=== PATIENT | female | born 1960 | race Two or more races ===

== ENCOUNTER 2017-01-05 10:24 | Emergency (ER) | payer MEDICAID ==
[~2017-01-05] VITALS: Ht 165.1 cm; Wt 83.9 kg
[2017-01-05 11:52] VITALS: BP 134/71
== END 2017-01-05 12:01 | disposition home or self-care (01) ==
LOC: ER 10:24
DX: F31.9 Bipolar disorder, unspecified (principal); Z88.0 Allergy status to penicillin; Z76.0 Encounter for issue of repeat prescription
CPT/HCPCS: 82962; 93005

== ENCOUNTER 2020-01-10 11:28 | Inpatient (IN) | payer MEDICAID ==
[~2020-01-10] VITALS: Ht 165.1 cm; Wt 65.1 kg
[2020-01-10] MEDS ORDERED: SODIUM CHLORIDE 0.9% 1,000 ML IVB ONE (11:48)
[2020-01-10] MEDS ORDERED: PANTOPRAZOLE 40 MG/10 ML VIAL INJ IV ONE (12:00)
[2020-01-10 13:32] LABS: Basophils # (auto) 0.1 10 ^3/uL (0-0.2); Basophils % (auto) 1.1 % (0.0-2.0); Eosinophils # (auto) 0.7 10 ^3/uL (0-0.8); Eosinophils % (auto) 11.8 % (0.0-7.0); Hematocrit 38.1 % (36.0-46.0); Hemoglobin 12.4 g/dL (12.2-16.2); Lymphocytes # (auto) 1.7 10 ^3/uL (0.4-5.4); Lymphocytes % (auto) 30.6 % (10.0-50.0); Mean Corpuscular Hemoglobin 30.3 pg (28.0-32.0); Mean Corpuscular Hgb Conc. 32.6 g/dL (32.0-36.0); Mean Corpuscular Volume 93.1 fL (80.0-100.0); Monocytes # (auto) 0.4 10 ^3/uL (0-1.3); Monocytes % (auto) 7.5 % (0.0-12.0); Neutrophils # (auto) 2.7 10 ^3/uL (1.6-8.6); Nucleated Red Blood Cells % 0.1 %; Platelet Count (auto) 161 10^3/uL (140-450); Red Blood Cells 4.09 10^6/uL (4.0-5.20); Red Cell Distribution Width 13.4 % (11.8-14.3); White Blood Cell 5.6 10^3/uL (4.4-10.8)
[2020-01-10 13:53] LABS: INR 0.97 (0.9-1.15); Partial Thromboplastin Time 26.5 sec (23.0-31.2)
[2020-01-10 14:08] LABS: Urine Bacteria NONE SEEN /hpf (None Seen); Urine Blood Negative /uL (Negative); Urine Specific Gravity 1.007 (1.001-1.035); Urine WBC 3 /hpf (0 - 5)
[2020-01-10 14:56] LABS: Albumin 3.7 g/dL (3.4-5.0); Calcium 8.2 mg/dL (8.5-10.1); Potassium 3.6 mmol/L (3.5-5.1)
[2020-01-10 14:59] LABS: BUN/Creatinine Ratio 16.9; Bilirubin, Total 0.3 mg/dL (0.2-1.0)
[2020-01-10] MEDS ORDERED: predniSONE 20 MG TAB PO SCH (16:45)
[2020-01-10] MEDS ORDERED: GOLYTELY 4L KIT PO ONE (16:45)
[2020-01-10] MEDS ORDERED: cefTRIAXone 1GM/50ML D5W 50 ML IV ONE (17:00)
[2020-01-10] MEDS ORDERED: HYDROCORTISONE 2.5% TOPICAL CREAM 30GM TUBE TOP SCH (18:00)
[2020-01-10] MEDS ORDERED: MORPHINE SULF INJ 2 MG/ML SYRINGE 1ML IV PRN (18:00)
[2020-01-10] MEDS ORDERED: NITROGLYCERIN 0.4 MG SL TAB SL PRN (18:00)
[2020-01-10] MEDS ORDERED: QUET100T46 PO (18:01)
[2020-01-10] MEDS ORDERED: BUPR100T14 PO (18:01)
[2020-01-10] MEDS ORDERED: LAMO200T34 PO (18:01)
[2020-01-10] MEDS ORDERED: BUSP15TA60 PO (18:01)
[2020-01-10] MEDS ORDERED: SULF500T8 PO (18:01)
[2020-01-10] MEDS: metroNIDAZOLE 500MG/100ML 100 ML IV SCH (19:00)
--- NOTE | 2020-01-10 20:10 | NUR ---
Telemetry admit from ER SEJALFILOMENA admitted to Telemetry unit after SBAR received. Patient oriented to Carolina wong RN, unit, room, bed, and unit policies regarding patient care and visiting hours. Patient now on continuous telemetry monitoring, tele box # 25 and telemetry reading on arrival to unit is SR 75. Patient placed on bedside oxygen, weighed by bed scale and encouraged to call if they need something. All questions and concerns addressed, patient verbalized understanding. Note: Came per magali awake alert oriented x 4, [place] speaking, placed in the bed comfortably, vital signs checked.
[2020-01-10 20:30] VITALS: BP 124/66
[2020-01-10] MEDS: busPIRone HCL 10 MG TAB PO SCH (21:09)
[2020-01-10] MEDS: sulfaSALAzine 500 MG TAB PO SCH (21:25)
--- NOTE | 2020-01-10 21:30 | NUR ---
Consented for colonoscopy.
[2020-01-10] MEDS ORDERED: QUEtiapine FUMARATE 100 MG TAB PO SCH (22:00)
[2020-01-10] MEDS ORDERED: lamoTRIgine 100 MG TAB PO SCH (22:00)
[2020-01-10] MEDS ORDERED: sulfaSALAzine 500 MG TAB PO SCH (22:00)
--- NOTE | 2020-01-10 22:02 | NUR ---
EKG done as per protocol for procedure colonoscopy shemar.
[2020-01-10 22:29] VITALS: BP 124/66
[2020-01-11] MEDS: MORPHINE SULF INJ 2 MG/ML SYRINGE 1ML IV PRN ×2 (04:02→16:22)
--- NOTE | 2020-01-11 05:00 | NUR ---
SELF SPONGE BATH DONE.
[2020-01-11] MEDS: sulfaSALAzine 500 MG TAB PO SCH ×2 (05:28→14:36)
[2020-01-11] MEDS: metroNIDAZOLE 500MG/100ML 100 ML IV SCH ×2 (05:28→14:36)
[2020-01-11 05:47] VITALS: BP 117/61
[2020-01-11] MEDS ORDERED: GOLYTELY 4L KIT PO ONE (06:00)
--- NOTE | 2020-01-11 07:20 | NUR ---
Care report given to Kika Hanley, patient is resting no distress.
--- NOTE | 2020-01-11 07:47 | NUR ---
IN HOUSE COVID SWAB COLLECTED AND WALKED DOWN TO LAB PER PROTOCOL
--- NOTE | 2020-01-11 07:58 | NUR ---
OR-COLONOSCOPY RECEIVED CALL FROM CELL ATTENDANT SENAIT. PER RN PATIENT NEEDS TO BE IN PREOP BY 0900. RN NOTIFIED COVID SWAB WAS JUST SENT TO LAB, PER RN CONTACT MD CARLSON TO NOTIFY AND INQUIRE IF WILL PROCEED WITH SCHEDULED COLONOSCOPY. WILL PAGE .
--- NOTE | 2020-01-11 08:01 | NUR ---
MD Jermain CARLSON PAGED DETAILED MESSAGE LEFT THROUGH EXCHANGE SYSTEM. WILL AWAIT CALL BACK.
[2020-01-11 09:39] LABS: Basophils # (auto) 0 10 ^3/uL (0-0.2); Basophils % (auto) 0.3 % (0.0-2.0); Eosinophils # (auto) 0.1 10 ^3/uL (0-0.8); Eosinophils % (auto) 0.8 % (0.0-7.0); Hematocrit 41.3 % (36.0-46.0); Hemoglobin 13.2 g/dL (12.2-16.2); Lymphocytes # (auto) 2.4 10 ^3/uL (0.4-5.4); Lymphocytes % (auto) 22.6 % (10.0-50.0); Mean Corpuscular Hemoglobin 30.8 pg (28.0-32.0); Monocytes # (auto) 0.7 10 ^3/uL (0-1.3); Monocytes % (auto) 6.4 % (0.0-12.0); Neutrophils # (auto) 7.4 10 ^3/uL (1.6-8.6); Neutrophils % (auto) 69.9 % (37.0-80.0); Nucleated Red Blood Cells % 0.1 %; Platelet Count (auto) 166 10^3/uL (140-450); Red Cell Distribution Width 13.4 % (11.8-14.3); White Blood Cell 10.6 10^3/uL (4.4-10.8)
[2020-01-11] MEDS ORDERED: FLUMAZENIL 0.1 MG/ML INJ 10ML MDV IV ONE (09:40)
[2020-01-11] MEDS ORDERED: SODIUM CHLORIDE LOCK 10 ML ONE (09:40)
[2020-01-11] MEDS ORDERED: NALOXONE HCL 0.4 MG/ML VIAL ONE (09:40)
[2020-01-11] MEDS ORDERED: diphenhdrAMINE HCL 50 MG/1 ML VL ONE (09:41)
[2020-01-11 09:55] VITALS: BP 133/69
[2020-01-11] MEDS ORDERED: buPROPion HCL 100 MG TAB PO SCH (10:00)
[2020-01-11] MEDS ORDERED: levoFLOXacin 500MG 100 ML IV SCH (10:00)
--- NOTE | 2020-01-11 10:15 | NUR ---
PATIENT OFF UNIT TO PREOP FOR SCHEDULED PROCEDURE WITH MD CARLSON
[2020-01-11] MEDS: MIDAZOLAM HCL 5 MG/ML-1ML VIAL ONE ×3 (10:23→10:29)
[2020-01-11] MEDS: fentaNYL CITRATE 100 MCG/2 ML VL ONE ×3 (10:23→10:29)
[2020-01-11 10:25] LABS: BUN/Creatinine Ratio 12.1; Potassium 3.4 mmol/L (3.5-5.1)
[2020-01-11] MEDS: busPIRone HCL 10 MG TAB PO SCH (12:34)
[2020-01-11 13:00] VITALS: BP 114/75
[2020-01-11 17:37] VITALS: BP 104/75
[2020-01-11] MEDS ORDERED: HYDR25SU21 PR (18:21)
[2020-01-11] MEDS ORDERED: SULF500T8 PO (18:21)
[2020-01-11 18:41] VITALS: BP 116/62
--- NOTE | 2020-01-11 19:10 | NUR ---
Opening Shift Note Patient awaiting discharge. Assumed care of patient, awake and alert. No S/S of distress/SOB or pain. Instructed on POC and to call for assist PRN, will continue to monitor for changes Q1hr and PRN. Safety precautions maintained bed is in lowest position and locked, bed rails 2x.
--- NOTE | 2020-01-11 20:10 | NUR ---
Patient awaiting discharge Taxi voucher obtained for patient. Patient states she has no one to give her a ride home. Taxi cab called, per driver license reviewing officer he will arrive in 45 minutes. Patient IV DC'D with clean sterile technique, catheter intact, patient tolerated well. Telemetry box taken off, will send to ICU. All discharge instructions given, patient verbalized understanding. Awaiting taxi.
--- NOTE | 2020-01-11 21:10 | NUR ---
Patient discharged Patient taken down via wheelchair to front lobby, picked up by carrier driver. At this time patient has no s/s of distress or SOB. Telemetry box sent to ICU. All questions and concerns answered.
[2020-01-11 21:54] VITALS: BP 119/69
[2020-01-11] MEDS ORDERED: HYDROCORTISONE 100 MG/60 ML RECT ENEMA PR SCH (22:00)
== END 2020-01-11 21:10 | disposition home or self-care (01) | DRG 245 ==
LOC: ER 11:28 → TELE 11:29 → TELE-CENTR 20:10
PROVIDERS: ADMIT Internal Medicine; ATTEND Internal Medicine
PROC: 0DBE8ZX Excision of Large Intestine, Via Natural or Artificial Opening Endoscopic, Diagnostic (ICD-10-PCS; principal; 2020-01-11 10:15)
DX: K51.911 Ulcerative colitis, unspecified with rectal bleeding (principal); F31.9 Bipolar disorder, unspecified; F41.9 Anxiety disorder, unspecified; N39.0 Urinary tract infection, site not specified; Z20.828 Contact with and (suspected) exposure to other viral communicable diseases
CPT/HCPCS: 36415; 45380; 71046; 74176; 80048; 80053; 81001; 83690; 83735; 85025; 85610; 85730; 93005; C9113; G0378; J0696; J1956; J2250; J3490

== ENCOUNTER 2020-12-25 00:30 | Emergency (ER) | payer MEDICAID ==
[~2020-12-25 00:30] MED LIST: BUPR100T14 PO; BUSP15TA60 PO; HYDR25SU21 PR; LAMO200T34 PO; QUET100T46 PO; SULF500T8 PO
[2020-12-25] MEDS ORDERED: SODIUM CHLORIDE 0.9% 1,000 ML IV ONE ×2 (01:15→05:15)
[2020-12-25 01:25] LABS: Basophils # (auto) 0.1 10 ^3/uL (0-0.2); Basophils % (auto) 0.6 % (0.0-2.0); Eosinophils # (auto) 0.5 10 ^3/uL (0-0.8); Eosinophils % (auto) 5.7 % (0.0-7.0); Hematocrit 30.3 % (36.0-46.0); Hemoglobin 10.1 g/dL (12.2-16.2); Lymphocytes % (auto) 33.3 % (10.0-50.0); Mean Corpuscular Hgb Conc. 33.5 g/dL (32.0-36.0); Mean Corpuscular Volume 95.5 fL (80.0-100.0); Monocytes # (auto) 0.8 10 ^3/uL (0-1.3); Monocytes % (auto) 9.3 % (0.0-12.0); Neutrophils # (auto) 4.6 10 ^3/uL (1.6-8.6); Neutrophils % (auto) 51.1 % (37.0-80.0); Red Blood Cells 3.17 10^6/uL (4.0-5.20); Red Cell Distribution Width 13.6 % (11.8-14.3)
[2020-12-25 01:46] LABS: Acetaminophen < 2.0 ug/mL (10-30); Salicylate 2.4 mg/dL (2.8-20.0)
[2020-12-25 01:47] LABS: Albumin 3.5 g/dL (3.4-5.0); BUN/Creatinine Ratio 11.1; Calcium 8.3 mg/dL (8.5-10.1)
[2020-12-25 01:51] LABS: Bilirubin, Total 0.5 mg/dL (0.2-1.0)
[2020-12-25 02:04] LABS: Potassium 2.7 mmol/L (3.5-5.1)
[2020-12-25] MEDS: POTASSIUM CHL 20MEQ/100ML 100 ML IV SCH ×3 (03:57→07:31)
[2020-12-25] MEDS: MAGNESIUM SULFATE 1GM/100ML 100 ML IV SCH ×2 (03:57→04:55)
[2020-12-25 04:14] LABS: Alcohol, Urine < 3.0 mg/dL (0-10); Amphetamine Screen, Urine NEGATIVE (NEGATIVE); Barbiturate Scree,Urine NEGATIVE (NEGATIVE); Benzodiazephine Screen, Urine NEGATIVE (NEGATIVE); Cannabinoid Screen, Urine NEGATIVE (NEGATIVE); Cocaine Screen, Urine NEGATIVE (NEGATIVE); Opiate Scree,Urine NEGATIVE (NEGATIVE); Phencyclidine Screen, Urine NEGATIVE (NEGATIVE)
[2020-12-25 04:17] LABS: Urine Bacteria NONE SEEN /hpf (None Seen); Urine Blood Negative /uL (Negative); Urine Mucus FEW (None Seen); Urine Specific Gravity 1.008 (1.001-1.035); Urine WBC 1 /hpf (0 - 5)
[2020-12-25 07:56] LABS: Albumin 2.9 g/dL (3.4-5.0); Anion Gap 1 (5-15); Blood Alcohol < 3.0 mg/dL (0-5); Blood Urea Nitrogen 3 mg/dL (7-18); Calcium 7.2 mg/dL (8.5-10.1); Carbon Dioxide 27 mmol/L (21-32); Chloride 115 mmol/L (98-107); Glucose 83 mg/dL (74-106); Magnesium 2.8 mg/dL (1.6-2.6); Potassium 3.7 mmol/L (3.5-5.1); Sodium 143 mmol/L (136-145)
[2020-12-25 07:59] LABS: Alanine Aminotransferase 18 U/L (13-56); Alkaline Phosphatase 67 U/L (45-117); Aspartate Aminotransferase 16 U/L (15-37); BUN/Creatinine Ratio 7.3; Bilirubin, Total 0.3 mg/dL (0.2-1.0); GFR African American 203 mL/min; GFR Non-African American 168 mL/min; Total Protein 5.9 g/dL (6.4-8.2)
[2020-12-25 08:35] LABS: Basophils # (auto) 0.1 10 ^3/uL (0-0.2); Basophils % (auto) 0.5 % (0.0-2.0); Eosinophils # (auto) 0.4 10 ^3/uL (0-0.8); Eosinophils % (auto) 4.5 % (0.0-7.0); Hematocrit 28.9 % (36.0-46.0); Hemoglobin 9.6 g/dL (12.2-16.2); Lymphocytes # (auto) 2.2 10 ^3/uL (0.4-5.4); Lymphocytes % (auto) 23.9 % (10.0-50.0); Mean Corpuscular Hemoglobin 32.3 pg (28.0-32.0); Mean Corpuscular Hgb Conc. 33.2 g/dL (32.0-36.0); Mean Corpuscular Volume 97.2 fL (80.0-100.0); Monocytes # (auto) 0.7 10 ^3/uL (0-1.3); Monocytes % (auto) 7.7 % (0.0-12.0); Neutrophils # (auto) 5.8 10 ^3/uL (1.6-8.6); Neutrophils % (auto) 63.4 % (37.0-80.0); Red Blood Cells 2.97 10^6/uL (4.0-5.20); Red Cell Distribution Width 13.5 % (11.8-14.3); White Blood Cell 9.2 10^3/uL (4.4-10.8)
[2020-12-25 09:00] VITALS: BP 106/53
== END 2020-12-25 09:58 | disposition home or self-care (01) ==
LOC: EDBD 00:30 → ER 00:37
DX: T50.901A Poisoning by unspecified drugs, medicaments and biological substances, accidental (unintentional), initial encounter (principal); E87.6 Hypokalemia; G92 Toxic encephalopathy; R94.31 Abnormal electrocardiogram [ECG] [EKG]; I10 Essential (primary) hypertension; Z79.899 Other long term (current) drug therapy; Y92.89 Other specified places as the place of occurrence of the external cause
CPT/HCPCS: 36415; 70450; 80053; 80307; 80320; 80329; 81001; 83735; 85025; 93005; 96365; 96366; 96368; 99285; J3475; J3480; J7030

== ENCOUNTER 2021-11-20 12:41 | Emergency (ER) | payer MEDICAID ==
[~2021-11-20] VITALS: Ht 165.1 cm; Wt 52.0 kg
[~2021-11-20 12:41] MED LIST changes: +BUPR-160 PO; -BUPR100T14 PO; -QUET100T46 PO; +QUET100T47 PO
[2021-11-20] MEDS ORDERED: ASPirin 81 mg TAB PO ONE (13:15)
[2021-11-20 13:39] LABS: Basophils # (auto) 0.1 10 ^3/uL (0-0.2); Basophils % (auto) 0.9 % (0.0-2.0); Eosinophils # (auto) 0.1 10 ^3/uL (0-0.8); Eosinophils % (auto) 1.9 % (0.0-7.0); Hematocrit 38.2 % (36.0-46.0); Hemoglobin 12.7 g/dL (12.2-16.2); Lymphocytes # (auto) 1.6 10 ^3/uL (0.4-5.4); Lymphocytes % (auto) 23.1 % (10.0-50.0); Mean Corpuscular Hemoglobin 29.6 pg (28.0-32.0); Mean Corpuscular Hgb Conc. 33.3 g/dL (32.0-36.0); Monocytes # (auto) 0.5 10 ^3/uL (0-1.3); Monocytes % (auto) 6.8 % (0.0-12.0); Neutrophils # (auto) 4.7 10 ^3/uL (1.6-8.6); Neutrophils % (auto) 67.3 % (37.0-80.0); Nucleated Red Blood Cells % 0.1 %; Red Cell Distribution Width 13.5 % (11.8-14.3)
[2021-11-20 13:51] LABS: Albumin 3.5 g/dL (3.4-5.0); Calcium 8.9 mg/dL (8.5-10.1)
[2021-11-20 13:56] LABS: BUN/Creatinine Ratio 22.4; Bilirubin, Total 0.3 mg/dL (0.2-1.0); Total Protein 7.5 g/dL (6.4-8.2)
[2021-11-20 16:18] LABS: Urine Bacteria FEW /hpf (None Seen); Urine Blood Negative /uL (Negative); Urine Hyaline Cast FEW /lpf (0 - 2); Urine Specific Gravity 1.022 (1.001-1.035); Urine WBC 12 /hpf (0 - 5)
[2021-11-20] MEDS ORDERED: CEPH-509 PO (16:30)
[2021-11-20 17:18] VITALS: BP 120/76
== END 2021-11-20 17:16 | disposition home or self-care (01) ==
LOC: ER 12:41
DX: R07.89 Other chest pain (principal); N39.0 Urinary tract infection, site not specified; I10 Essential (primary) hypertension
CPT/HCPCS: 36415; 71045; 80053; 81001; 84443; 84484; 85025; 85379; 93005

== ENCOUNTER 2022-03-13 17:54 | Emergency (ER) | payer MEDICAID ==
[~2022-03-13] VITALS: Ht 165.1 cm; Wt 48.3 kg
[~2022-03-13 17:54] MED LIST changes: +CEPH-509 PO
[2022-03-13] MEDS ORDERED: MORPHINE SULFATE INJ 2 MG/ml SYRG IV ONE (18:15)
[2022-03-13] MEDS ORDERED: SODIUM CHLORIDE 0.9% 500 ML IVB ONE (18:15)
[2022-03-13] MEDS ORDERED: PANTOPRAZOLE 40 MG/10 ML VIAL INJ IV ONE (18:15)
[2022-03-13] MEDS ORDERED: ONDANSETRON HCL 4 MG/2 ML VIAL IV ONE (18:15)
[2022-03-13 19:03] LABS: Basophils # (auto) 0 10 ^3/uL (0-0.2); Basophils % (auto) 0.3 % (0.0-2.0); Eosinophils # (auto) 0.3 10 ^3/uL (0-0.8); Eosinophils % (auto) 3.3 % (0.0-7.0); Hematocrit 39.8 % (36.0-46.0); Hemoglobin 13.1 g/dL (12.2-16.2); Lymphocytes # (auto) 1.9 10 ^3/uL (0.4-5.4); Lymphocytes % (auto) 23.2 % (10.0-50.0); Mean Corpuscular Hemoglobin 30.1 pg (28.0-32.0); Monocytes # (auto) 0.9 10 ^3/uL (0-1.3); Monocytes % (auto) 10.5 % (0.0-12.0); Neutrophils # (auto) 5.1 10 ^3/uL (1.6-8.6); Neutrophils % (auto) 62.7 % (37.0-80.0); Red Blood Cells 4.37 10^6/uL (4.0-5.20); Red Cell Distribution Width 13.4 % (11.8-14.3); White Blood Cell 8.1 10^3/uL (4.4-10.8)
[2022-03-13 19:51] LABS: BUN/Creatinine Ratio 12.9; Bilirubin, Total 0.4 mg/dL (0.2-1.0); Calcium 9.4 mg/dL (8.5-10.1); Potassium 4.3 mmol/L (3.5-5.1); Total Protein 7.6 g/dL (6.4-8.2)
[2022-03-13] MEDS ORDERED: MORPHINE SULFATE INJ 2 MG/ml SYRG IM ONE (20:45)
[2022-03-13 21:32] LABS: Urine Bacteria NONE SEEN /hpf (None Seen); Urine Blood 1+ /uL (Negative); Urine Mucus FEW (None Seen); Urine Specific Gravity 1.015 (1.001-1.035); Urine WBC 6 /hpf (0 - 5)
[2022-03-14] MEDS ORDERED: ONDA-144 PO (02:16)
[2022-03-14] MEDS ORDERED: AMOX-277 PO (02:16)
[2022-03-14 02:46] VITALS: BP 103/54
== END 2022-03-14 02:49 | disposition home or self-care (01) ==
LOC: ER 17:54
DX: R10.9 Unspecified abdominal pain (principal); I10 Essential (primary) hypertension
CPT/HCPCS: 36415; 74176; 80053; 81001; 82150; 83690; 85025; 93005; 96361; 96372; 96374; 96375; 99285; C9113; J2270; J2405; J7040